=== PATIENT | male | born 1980 | race African-American/Black ===

== ENCOUNTER 2018-10-11 20:53 | Emergency (ER) | payer MEDICAID ==
[~2018-10-11] VITALS: Ht 182.9 cm; Wt 104.3 kg
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
[2018-10-11 21:16] VITALS: BP 132/72
[2018-10-11] MEDS ORDERED: NKM (21:16)
[2018-10-11] MEDS ORDERED: Ketorolac 60mg Inj IM ONE (21:45)
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
[2018-10-11] MEDS ORDERED: IBUPROFEN600 MG ORAL (22:17)
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
[2018-10-11 22:29] VITALS: BP 132/72
--- NOTE | 2018-10-12 11:39 | Diagnostic Imaging Report ---
Indication: Neck Pain Findings: 3 views of the cervical spine were obtained. There is no acute fracture identified. Alignment is normal. The open-mouth odontoid view shows an intact dens and good alignment of the lateral masses with respect to the body of C2. There is no soft tissue swelling. Impression: Negative cervical spine examination.
== END 2018-10-11 22:30 | disposition home or self-care (01) ==
LOC: EMR 21:27
DX: M54.2 Cervicalgia (principal); S16.1XXA Strain of muscle, fascia and tendon at neck level, initial encounter; V43.52XA Car driver injured in collision with other type car in traffic accident, initial encounter; Y92.410 Unspecified street and highway as the place of occurrence of the external cause
CPT/HCPCS: 72040; 96372; 99283

== ENCOUNTER 2018-12-13 17:27 | Emergency (ER) | payer MEDICAID ==
[~2018-12-13] VITALS: Ht 182.9 cm; Wt 111.1 kg
[~2018-12-13 17:27] MED LIST: IBUPROFEN600 MG ORAL; NKM
[2018-12-13 18:03] VITALS: BP 142/78
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
[2018-12-13] MEDS ORDERED: oxyCODONE HCL/Acetaminophen 5/325mg ORAL ONE (18:15)
[2018-12-13 18:50] LABS: APPEARANCE,URINE CLEAR; BILIRUBIN, URINE NEGATIVE (NEGATIVE); GLUCOSE, URINE (UA) NEGATIVE (NEGATIVE); KETONES,URINE 1+ (NEGATIVE); LEUKOCYTE ESTERASE ,URINE NEGATIVE (NEGATIVE); NITRITE,URINE NEGATIVE (NEGATIVE); PH,URINE 5 (4.5-8.0); PROTEIN,URINE 1+ (NEGATIVE); UROBILINOGEN,URINE NORMAL MG/DL (0.0-1.0)
[2018-12-13 18:51] LABS: COLOR,URINE YELLOW
--- NOTE | 2018-12-13 19:09 | NUR ---
ED Nurse Note: ERPA talking to the pt and .
[2018-12-13] MEDS ORDERED: ROBAXIN500 MG PO (19:14)
[2018-12-13] MEDS ORDERED: VOLTAREN100 G1 TP (19:14)
[2018-12-13] MEDS ORDERED: IBUPROFEN600 MG ORAL (19:14)
[2018-12-13] MEDS ORDERED: NORCO 5-325 TA1 EACH ORAL (19:14)
[2018-12-13 19:20] VITALS: BP 109/72
--- NOTE | 2018-12-13 19:20 | NUR ---
ER DISCHARGE NOTE: Patient is cleared to be discharged per ERPA, pt is aox4, accompanied by , on room air, with stable vital signs. pt was given dc and prescription instructions, pt was able to verbalize understanding, pt id band removed. pt is able to ambulate with steady gait. pt took all belongings.
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
== END 2018-12-13 19:20 | disposition home or self-care (01) ==
LOC: EMR 17:50
DX: M54.5 Low back pain (principal)
CPT/HCPCS: 72131; 81003; 99284